=== PATIENT | male | born 2000 | race Caucasian/White ===

== ENCOUNTER 2022-08-08 18:35 | Emergency (ER) | payer OTHER, SELFPAY ==
[2022-08-08 18:49] VITALS: BP 104/66; PULSE 82; RESP 14; TEMP 36.8; O2SAT 99
--- NOTE | 2022-08-08 19:08 | W.ED.ANIMALB ---
HPI - Animal Bite General: Chief Complaint: Animal Bite Stated Complaint: Bit by Possum Time Seen by Provider: 08/08/22 19:01 History of Present Illness: 21-year-old male patient was trying to remove a well-appearing opossum from an enclosure when he got scratched and bit on his left hand. Wounds are nonerythematous. No bleeding. Appears superficial like scratches. Patient mother is concerned for rabies. Patient reports his tetanus immunization is up-to-date. Review of Systems Skin/Breast: Reports: new lesions (Superficial abrasions to the hand) Physical Exam Const: COMMON NORMALS: alert HENMT: COMMON NORMALS: normocephalic HEAD & SCALP: normocephalic Neck/C-Spine: COMMON NORMALS: full ROM Resp: COMMON NORMALS: normal respiratory effort Cardio: COMMON NORMALS: regular rate and regular rhythm RATE: regular rate RHYTHM: regular rhythm Extremity: LEFT UPPER EXTREMITY: Yes hand & digits (Superficial abrasions dorsal fingers) Neuro: SENSORIUM/ORIENTATION: Yes alert Skin: TRAUMA: abrasion (Superficial left hand) Course Vital Signs: Vital signs: Vital Signs Temperature 98.2 F 08/08/22 18:49 Pulse Rate 82 08/08/22 18:49 Respiratory Rate 14 08/08/22 18:49 Blood Pressure 104/66 08/08/22 18:49 Pulse Oximetry 99 08/08/22 18:49 Oxygen Delivery Me thod 08/08/22 18:49 MDM - Animal Bite Medical Decision Making Patient comes in today for superficial abrasions to left hand. On exam there is several small linear abrasions to the third and fourth digits of the left hand. No significant depth to the wounds. Normal range of motion is noted. Differential diagnosis includes but not limited to animal bite, need for prophylaxis tetanus, need for postexposure rabies. Reviewed risks and benefits for rabies vaccine and postexposure prophylaxis. Patient agreed to antibiotics but refused rabies treatment at this time. Discussed that if patient changes mind he may return to the ER for initiation of postexposure rabies treatment. Discharge Plan Discharge Patient Disposition: Home Clinical Impression: Bite by animal Condition: Stable Prescriptions: New amoxicillin-pot clavulanate 875-125 mg tablet 1 tab PO BID Qty: 14 0RF Discharge Orders: Discharge ED (Routine); Ordered 08/08/22 Ordered By: Isai Wilder Discharge Diet: Usual diet Discharge Activity: Increase activity as tolerated Patient Instructions: Animal Bite (ED) Activity Restrictions/Additional Instructions: Clean wounds twice a day with mild soap and water. Apply antibiotic ointment until healed. Take oral antibiotics twice a day for the next 7 days. Follow-up with primary care in 1 week for recheck. Return to ER for new concerns or worsening symptoms such as high fever, increased redness and swelling to the hand. Coding Level of Care Code ED Electric Meter Installer for Indu Fwmehul Exam Detailed
[2022-08-08] MEDS: amoxicillin-clav 875-125 mg Tablet 1 TAB PO (19:31)
== END 2022-08-08 19:38 | disposition home or self-care (01) ==
PROVIDERS: Emergency Provider Nurse Practitioner Family
DX: S61.452A Open bite of left hand, initial encounter (principal); W55.81XA Bitten by other mammals, initial encounter
CPT/HCPCS: 99283

== ENCOUNTER 2025-01-06 21:39 | Emergency (ER) | payer SELFPAY ==
[2025-01-06 21:48] VITALS: BP 137/88; PULSE 114; RESP 14; TEMP 36.7; O2SAT 100; BMI 23.1
[2025-01-06 22:22] VITALS: BP 133/93; PULSE 112; RESP 18; O2SAT 100
--- NOTE | 2025-01-06 22:24 | XRR_ITS ---
PROCEDURE INFORMATION: Exam: XR Right Femur Exam date and time: 01/06/2025 10:27 PM Age: 24 years old Clinical indication: Injury or trauma; Other: Thrown from horse; Wound; Thigh or upper leg; Right; Foreign body involvement not specified; Additional info: Trauma, changed to 2 view per verbal order from Dr gan TECHNIQUE: Imaging protocol: Radiologic exam of the right femur. Views: 2 views. COMPARISON: No relevant prior studies available. FINDINGS: Bones/joints: No acute fracture or dislocation. The hip and knee joints appear grossly intact. Soft tissues: No radiopaque foreign body visualized. Soft tissue ulceration along the anterior upper thigh with areas of subcutaneous gas. XR/XR femur RT min 2V* [id number] IMPRESSION: 1. No acute osseous findings. 2. No radiopaque foreign body. 3. Soft tissue ulceration.
--- NOTE | 2025-01-06 23:04 | W.ED.WOUNDLC ---
HPI - Wound/Laceration General: Chief Complaint: Wound/Laceration Stated Complaint: thrown off horse History of Present Illness: David Hendrix, a 24-year-old male presents after being thrown from a horse and landing on a culvert, resulting in a significant leg injury. The incident occurred around 7:30 today, causing a large open wound on his leg. The patient reports a chunk was taken out of his leg when he hit the culvert. The wound measures 10 cm by 7 cm and goes down to the muscle layer, exposing muscle fibers. There is an additional 2.5 inches (approximately 6.35 cm) of tunneling medially and superiorly, with torn muscle fibers of the vastus medialis. While there is no active bleeding, the wound is oozing. Despite the severity of the injury, the patient reports he is not in significant pain. The patient requests to have the wound sewn closed so he can go home, indicating a preference for immediate treatment. He refused laboratory tests but agreed to pending x-ray imaging of the femur. Related Data Previous Rx's ?Medication ?Instructions ?Recorded amoxicillin 875 mg-potassium 1 tab PO BID #14 tabs 08/08/22 clavulanate 125 mg tablet Allergies Allergy/AdvReac Type Severity Reaction Status Date / Time No Known Allergies Allergy Verified 01/06/25 21:53 Review of Systems General: Reports: 10 or more systems reviewed and unremarkable except in HPI and below Physical Exam Const: COMMON NORMALS: no acute distress, patient oriented x3, healthy appearing, alert and well nourished HENMT: COMMON NORMALS: normocephalic HEAD & SCALP: normocephalic Eye: COMMON NORMALS: EOMs intact bilaterally Neck/C-Spine: COMMON NORMALS: full ROM and supple Resp: COMMON NORMALS: normal respiratory effort, No retractions and clear to auscultation bilaterally AUSCULTATION: clear to auscultation bilaterally Cardio: COMMON NORMALS: regular rate, regular rhythm, No gallops present (Cardio) and No murmurs present (Cardio) RATE: regular rate RHYTHM: regular rhythm GI: COMMON NORMALS: Soft to palpation and non-tender PALPATION: Yes Soft to palpation Extremity: GENERAL: Yes normal exam except as noted Neuro: COMMON NORMALS: patient oriented x3 SENSORIUM/ORIENTATION: Yes alert Skin: NARRATIVE SKIN EXAM: Large lesion to the right thigh measuring 10 x 7 cm with a tunneling portion that goes superior and medial and additional 6 cm. Significantly deep to the muscle layer. Some muscle fibers have been cut in the tunneled area. Course Vital Signs: Vital signs: Vital Signs Temperature 98.1 F 01/06/25 21:48 Pulse Rate 116 H 01/07/25 00:11 Respiratory Rate 18 01/07/25 00:11 Blood Pressure 143/82 01/07/25 00:11 Pulse Oximetry 100 01/07/25 00:11 Oxygen Delivery Me thod Room Air 01/06/25 23:18 MDM - Wound/Laceration Medical Decision Making 23-year-old male presents to the emergency department several hours after being thrown from his horse and landing on a culvert. He has a significant wound to his right thigh with some muscle involvement. Due to the extensive nature of this wound patient was transferred to [facility] in [place] for plastic surgery evaluation. He received a dose of Ancef before he left. Risk and benefits of transportation via POV versus EMS were discussed and the patient and his mother agreed to be taken by private vehicle. Patient then discharged for transfer to the ER at [facility]. ER physician excepted. Lab Data Radiology Impressions Femur X-Ray 01/06/25 22:24 IMPRESSION: 1. No acute osseous findings. 2. No radiopaque foreign body. 3. Soft tissue ulceration. All radiology interpretation(s) finalized by discharge Discharge Plan Discharge Patient Disposition: Xfer Short-Term Hosp Clinical Impression: Laceration Condition: Stable Print Language: Portuguese Coding Level of Care Code ED Oil Well Pumper for Indu Higuera
[2025-01-06 23:18] VITALS: BP 151/91; PULSE 113; O2SAT 100
[2025-01-06] MEDS: morphine 4 mg/mL SDV 1 mL IM (23:42)
[2025-01-06] MEDS: acetaminophen 500 mg Tablet 1000 MG PO (23:43)
[2025-01-07] MEDS: ceFAZolin 1,000 MG in sodium chloride 0.9% (plus) 100 ML 200 MG IV (00:01)
[2025-01-07 00:11] VITALS: BP 143/82; PULSE 116; RESP 18; O2SAT 100
== END 2025-01-07 00:19 | disposition short-term general hospital (02) ==
PROVIDERS: Emergency Provider General Practice
DX: S71.111A Laceration without foreign body, right thigh, initial encounter (principal); V80.010A Animal-rider injured by fall from or being thrown from horse in noncollision accident, initial encounter; Y93.52 Activity, horseback riding
CPT/HCPCS: 73552; 96365; 99284; J0690; J2270; J9999